=== PATIENT | male | born 1985 | race Two or more races ===

== ENCOUNTER 2023-02-28 19:22 | Emergency (ER) | payer OTHER ==
[~2023-02-28] VITALS: Ht 162.6 cm; Wt 90.7 kg
[2023-02-28] MEDS ORDERED: MUCINEX FAST-M180 M2 PO (21:55)
[2023-02-28] MEDS ORDERED: XOPENEX CO1.25 MG/0. IH (21:55)
[2023-02-28] MEDS ORDERED: MEDROLPACK PO (21:55)
[2023-02-28] MEDS ORDERED: IPRAT-ALBUT 0.5-3 ML IH (21:55)
[2023-02-28] MEDS ORDERED: BUDESONIDE0.5 MG/2 M IH (21:55)
[2023-02-28] MEDS ORDERED: PAXLOVID 300-11 EACH PO (21:55)
== END 2023-02-28 22:20 | disposition home or self-care (01) ==
LOC: ER 19:22
DX: U07.1 COVID-19 (principal); J00 Acute nasopharyngitis [common cold]; I10 Essential (primary) hypertension